=== PATIENT | female | born 1980 | race Two or more races ===

== ENCOUNTER 2020-01-03 11:58 | Inpatient (IN) | payer SELFPAY ==
[~2020-01-03] VITALS: Ht 162.6 cm; Wt 94.6 kg
[2020-01-03] MEDS ORDERED: SODIUM CHLORIDE 0.9% 1,000 ML IVB ONE (13:03)
[2020-01-03] MEDS ORDERED: ONDANSETRON HCL 4 MG/2 ML VIAL IV ONE (13:15)
[2020-01-03] MEDS ORDERED: MORPHINE SULFATE 4 MG/ML SYR/VIAL IV ONE (13:15)
[2020-01-03 13:41] LABS: Basophils # (auto) 0 10 ^3/uL (0-0.2); Basophils % (auto) 0.4 % (0.0-2.0); Eosinophils # (auto) 0.1 10 ^3/uL (0-0.8); Eosinophils % (auto) 1.2 % (0.0-7.0); Hematocrit 37.8 % (36.0-46.0); Hemoglobin 13.1 g/dL (12.2-16.2); Lymphocytes # (auto) 1.3 10 ^3/uL (0.4-5.4); Mean Corpuscular Hgb Conc. 34.5 g/dL (32.0-36.0); Mean Corpuscular Volume 86.9 fL (80.0-100.0); Monocytes # (auto) 0.3 10 ^3/uL (0-1.3); Monocytes % (auto) 5.8 % (0.0-12.0); Neutrophils # (auto) 3.1 10 ^3/uL (1.6-8.6); Neutrophils % (auto) 64.6 % (37.0-80.0); Platelet Count (auto) 239 10^3/uL (140-450); Red Blood Cells 4.35 10^6/uL (4.0-5.20); Red Cell Distribution Width 12.7 % (11.8-14.3); White Blood Cell 4.8 10^3/uL (4.4-10.8)
[2020-01-03 14:08] LABS: Albumin 3.8 g/dL (3.4-5.0); Calcium 8.8 mg/dL (8.5-10.1); Potassium 3.5 mmol/L (3.5-5.1)
[2020-01-03 14:11] LABS: Bilirubin, Total 0.7 mg/dL (0.2-1.0); Total Protein 7.9 g/dL (6.4-8.2)
[2020-01-03] MEDS ORDERED: MORPHINE SULF INJ 2 MG/ML SYRINGE 1ML IV PRN (15:15)
[2020-01-03] MEDS ORDERED: TEMAZEPAM 15 MG CAP PO PRN (15:15)
[2020-01-03] MEDS ORDERED: ACETAMINOPHEN 500 MG TAB PO PRN (15:15)
[2020-01-03] MEDS ORDERED: traMADol HCL 50 MG TAB PO PRN (15:15)
[2020-01-03] MEDS ORDERED: PROMETHAZINE HCL 25 MG/ML 1ML IV PRN (15:15)
[2020-01-03] MEDS: FAMOTIDINE (10MG/ML) 2ML VL IV SCH ×2 (15:46→21:59)
[2020-01-03 17:00] VITALS: BP 129/54
--- NOTE | 2020-01-03 17:00 | NUR ---
MS admit from ER JENELLE MCNEAL admitted to tele/MS after SBAR received from ER nurse Coyle. Patient oriented to Jerri Neely RN primary RN, unit, room, bed, and unit policies regarding patient care and visiting hours. Patient weighed by bedscale and encouraged to call if they need something. All questions and concerns addressed, patient verbalized understanding. Note: Patient is alert and oriented x4. No S/S of distress/SOB or pain. Respirations are even and unlabored. IV to left AC is asymptomatic, patent and intact. Ambulates independently with steady gait. Bed is low, locked with 2x side rails up. Call light is within reach. Instructed on POC and to call for assist PRN, will continue to monitor for changes Q1hr and PRN.
[2020-01-03] MEDS: SODIUM CHLORIDE 0.9% 1,000 ML IV SCH (17:52)
--- NOTE | 2020-01-03 19:15 | NUR ---
Opening Shift Note Received report from URIEL Guthrie and assumed care of patient, awake and alert. No S/S of distress/SOB or pain. Instructed patient to call for assist if needed and patient verbalized understanding. Will continue to monitor .
[2020-01-03 21:56] VITALS: BP 91/51
[2020-01-04] MEDS: SODIUM CHLORIDE 0.9% 1,000 ML IV SCH ×2 (03:18→11:13)
[2020-01-04] MEDS: FAMOTIDINE (10MG/ML) 2ML VL IV SCH ×2 (03:37→15:15)
--- NOTE | 2020-01-04 07:30 | NUR ---
Opening Shift Note Assumed care of patient,who is alert and oriented x4. No S/S of distress/SOB or pain. Respirations are even and unlabored. Bed is low, locked with 2x side rails up. Call light is within reach. Instructed on POC and to call for assist PRN, will continue to monitor for changes Q1hr and PRN.
[2020-01-04 08:00] VITALS: BP 117/74
[2020-01-04 09:00] VITALS: BP 117/74
--- NOTE | 2020-01-04 10:10 | NUR ---
Dr. Akil torres. Updated patient on POC. Patient will be dc'd today and can follow up as outpatient for surgical consult.
--- NOTE | 2020-01-04 11:00 | NUR ---
Urinalysis Educated patient on need for Urine sample. Provided patient with supplies to provide sample. Will continue to monitor.
--- NOTE | 2020-01-04 11:15 | NUR ---
Urine sample Taken to lab.
[2020-01-04 12:04] LABS: Urine Bacteria FEW /hpf (None Seen); Urine Blood 3+ /uL (Negative); Urine Specific Gravity 1.011 (1.001-1.035); Urine WBC 9 /hpf (0 - 5); Urine WBC Clumps PRESENT /hpf (None Seen)
[2020-01-04] MEDS ORDERED: CEFTRIAXONE SODIUM 2 GM in D5W 5% 50 ML IV ONE (12:45)
[2020-01-04 13:00] VITALS: BP 101/60
[2020-01-04 14:56] VITALS: BP 101/60
--- NOTE | 2020-01-04 15:25 | NUR ---
Discharge Provided patient with information/coupon for [facility] because patient does not have insurance. Advised patient to follow up in 1 week per MD orders. Also provided patient with information to schedule surgical consult with Dr. Scherer. Patient stated she will call monday morning. This nurse also advised patient to follow a low fat diet, and eat smaller meals (see discharge teaching/instructions). Patient verbalized understanding. Will continue to monitor.
[2020-01-04 17:00] VITALS: BP 104/63
--- NOTE | 2020-01-04 17:31 | NUR ---
Discharge instructions given as ordered. Encourage to follow up with PMD as instructed. All questions and concerns addressed. Patient verbalized understanding. IV removed with catheter intact, pressure dressing applied. Patient ambulated with all personal belongings, accompanied by staff. No distress noted at time of departure.
== END 2020-01-04 17:33 | disposition home or self-care (01) | DRG 446 ==
LOC: ER 12:03 → OVERFLOW 12:04 → CENTRAL 16:57
PROVIDERS: ADMIT Internal Medicine; ATTEND Internal Medicine
DX: K80.20 Calculus of gallbladder without cholecystitis without obstruction (principal); E66.9 Obesity, unspecified; Z68.35 Body mass index [BMI] 35.0-35.9, adult; Z82.49 Family history of ischemic heart disease and other diseases of the circulatory system
CPT/HCPCS: 36415; 71045; 76705; 80053; 81001; 81025; 83690; 85025; G0378; J0696; J2405; J3490; J7060

== ENCOUNTER 2022-10-21 19:07 | Emergency (ER) | payer OTHER ==
[~2022-10-21] VITALS: Ht 162.6 cm; Wt 88.0 kg
[2022-10-21] MEDS ORDERED: IBUPROFEN 800 MG TAB PO ONE (21:45)
[2022-10-21 21:56] VITALS: BP 122/70
== END 2022-10-21 22:12 | disposition home or self-care (01) ==
LOC: ER 19:07
DX: S16.1XXA Strain of muscle, fascia and tendon at neck level, initial encounter (principal); M54.6 Pain in thoracic spine; V49.59XA Passenger injured in collision with other motor vehicles in traffic accident, initial encounter; Y93.89 Activity, other specified; Y92.410 Unspecified street and highway as the place of occurrence of the external cause; Y99.8 Other external cause status